=== PATIENT | male | born 2000 | race Caucasian/White ===

== ENCOUNTER 2022-09-06 10:36 | Inpatient (IN) | payer OTHER ==
[2022-09-06 11:24] VITALS: BMI 28.5
[2022-09-06] MEDS ORDERED: ONDANSETRON *ODT* 4 MG TABLET SL PRN (12:01)
[2022-09-06] MEDS ORDERED: IBUPROFEN 600 MG TABLET (FP) PO PRN (12:01)
[2022-09-06] MEDS ORDERED: NALOXONE HCL (KLOXXADO) 8 MG SPRAY NS PRN (12:01)
[2022-09-06] MEDS ORDERED: IBUPROFEN 400 MG TABLET (FP) PO PRN (12:01)
[2022-09-06] MEDS ORDERED: MAG HYDROX/AL HYDROX/SIMETH 30 ML UNIT-DOSE CUP PO PRN (12:01)
[2022-09-06] MEDS ORDERED: LOPERAMIDE HCL 2 MG CAPSULE PO PRN (12:01)
[2022-09-06] MEDS ORDERED: DICYCLOMINE HCL 10 MG CAPSULE PO PRN (12:01)
[2022-09-06] MEDS ORDERED: NALOXONE HCL 0.4 MG/ML VIAL IM PRN (12:01)
[2022-09-06] MEDS ORDERED: BISMUTH SUBSALICYLATE 262 MG/15 ML BTL PO PRN (12:01)
[2022-09-06] MEDS ORDERED: NICOTINE 10 MG CARTRIDGE (INHALER) IH PRN (12:01)
[2022-09-06] MEDS ORDERED: methaDONE HCL 10 MG TABLET (FOR DETOX USE ONLY) PO ONE (12:01)
[2022-09-06] MEDS ORDERED: ACETAMINOPHEN 325 MG TABLET (FP) PO PRN (12:01)
[2022-09-06] MEDS ORDERED: BENZOCAINE/MENTHOL (CHLORASEPTIC ) LOZENGE MM PRN (12:01)
[2022-09-06] MEDS ORDERED: BENZONATATE 200 MG CAPSULE PO PRN (12:01)
[2022-09-06] MEDS ORDERED: guaiFENesin 600 MG TABLET.ER (FP) PO PRN (12:01)
[2022-09-06] MEDS ORDERED: MAGNESIUM HYDROX 2400MG/30ML ORAL SUSPENSION 30 ML CUP PO PRN (12:01)
[2022-09-06] MEDS ORDERED: POLYETHYLENE GLYCOL (HEALTHYLAX) 3350 17 GM PACKET PO PRN (12:01)
[2022-09-06] MEDS ORDERED: COLLOIDAL OATMEAL 1 BAR EACH TP PRN (12:08)
[2022-09-06] MEDS ORDERED: AMMONIUM LACTATE 12% LOTION 225 GM BOTTLE TP PRN (12:08)
[2022-09-06] MEDS ORDERED: NICOTINE POLACRILEX 2 MG GUM BUC PRN (12:17)
[2022-09-06] MEDS ORDERED: methaDONE HCL 10 MG TABLET (FOR DETOX USE ONLY) ONE (12:44)
[2022-09-06] MEDS: BACITRACIN 0.9 GM PACKET TP SCH ×2 (12:53→22:44)
[2022-09-06] MEDS: SULFAMETHOXAZOLE/TRIMETHOPRIM 800MG/160MG D.S. TABLET PO SCH ×2 (14:38→22:44)
[2022-09-06] MEDS: hydrOXYzine PAMOATE 25 MG CAPSULE (FP) PO PRN (14:48)
[2022-09-06 14:56] LABS: HEMATOCRIT 41.2 % (35.4-49); HEMOGLOBIN 14.4 GM/dL (11.7-16.9); MCH 30.9 pg (25.7-33.7); MCHC 34.9 g/dl (32.0-35.9); MEAN CELL VOLUME 88.4 fl (80-96); MEAN PLT VOLUME 9.4 fl (7.5-11.1); PLATELET COUNT 284 10^3/uL (134-434); RBC 4.66 M/mm3 (4.00-5.60); RDW 12.6 % (11.9-15.9); WHITE BLOOD COUNT 4.7 K/mm3 (4.0-10.0)
[2022-09-06 15:03] LABS: POTASSIUM 4.2 mmol/L (3.5-5.1)
[2022-09-06 15:14] LABS: ALBUMIN 3.6 g/dl (3.4-5.0); CALCIUM 9.4 mg/dL (8.5-10.1)
[2022-09-06 15:15] LABS: BLOOD UREA NITROGEN 11.6 mg/dL (7-18)
[2022-09-06 15:18] LABS: CREATININE 0.9 mg/dL (0.55-1.3)
[2022-09-06 15:19] LABS: BILIRUBIN,TOTAL 0.3 mg/dL (0.2-1); TOT PROT 7.5 g/dl (6.4-8.2)
[2022-09-06] MEDS: THIAMINE HCL 100 MG TABLET (FP) PO SCH (22:43)
[2022-09-06] MEDS: MELATONIN 5 MG TABLETS PO SCH (22:43)
[2022-09-07] MEDS: SULFAMETHOXAZOLE/TRIMETHOPRIM 800MG/160MG D.S. TABLET PO SCH ×2 (10:40→22:18)
[2022-09-07] MEDS: PRENATAL VITAMINS W/ FOLIC ACID TABLET (FP) PO SCH (10:40)
[2022-09-07] MEDS: BACITRACIN 0.9 GM PACKET TP SCH ×2 (10:40→22:18)
[2022-09-07] MEDS: METHOCARBAMOL 500 MG TABLET PO PRN (10:42)
[2022-09-07] MEDS: FLUoxetine HCL 20 MG CAPSULE PO SCH (10:42)
[2022-09-07] MEDS: cloNIDine HCL 0.1 MG TABLET PO PRN ×2 (13:02→20:37)
[2022-09-07] MEDS: hydrOXYzine PAMOATE 25 MG CAPSULE (FP) PO PRN ×2 (13:02→22:18)
[2022-09-07] MEDS: THIAMINE HCL 100 MG TABLET (FP) PO SCH (22:18)
[2022-09-07] MEDS: MELATONIN 5 MG TABLETS PO SCH (22:18)
[2022-09-08] MEDS: METHOCARBAMOL 500 MG TABLET PO PRN (06:01)
[2022-09-08] MEDS: hydrOXYzine PAMOATE 25 MG CAPSULE (FP) PO PRN ×2 (06:01→17:33)
[2022-09-08] MEDS ORDERED: methaDONE HCL 10 MG TABLET (FOR DETOX USE ONLY) PO ONE (10:00)
[2022-09-08] MEDS: FLUoxetine HCL 20 MG CAPSULE PO SCH (10:10)
[2022-09-08] MEDS: PRENATAL VITAMINS W/ FOLIC ACID TABLET (FP) PO SCH (10:10)
[2022-09-08] MEDS: SULFAMETHOXAZOLE/TRIMETHOPRIM 800MG/160MG D.S. TABLET PO SCH ×2 (10:10→22:13)
[2022-09-08] MEDS: BACITRACIN 0.9 GM PACKET TP SCH ×2 (11:07→22:13)
[2022-09-08] MEDS: THIAMINE HCL 100 MG TABLET (FP) PO SCH (22:13)
[2022-09-08] MEDS: MELATONIN 5 MG TABLETS PO SCH (22:13)
[2022-09-09] MEDS: SULFAMETHOXAZOLE/TRIMETHOPRIM 800MG/160MG D.S. TABLET PO SCH ×2 (10:15→22:21)
[2022-09-09] MEDS: FLUoxetine HCL 20 MG CAPSULE PO SCH (10:15)
[2022-09-09] MEDS: METHOCARBAMOL 500 MG TABLET PO PRN ×2 (10:16→19:46)
[2022-09-09] MEDS: PRENATAL VITAMINS W/ FOLIC ACID TABLET (FP) PO SCH (10:16)
[2022-09-09] MEDS: BACITRACIN 0.9 GM PACKET TP SCH ×2 (10:16→22:21)
[2022-09-09] MEDS: hydrOXYzine PAMOATE 25 MG CAPSULE (FP) PO PRN ×2 (10:16→19:46)
[2022-09-09] MEDS: THIAMINE HCL 100 MG TABLET (FP) PO SCH (22:21)
[2022-09-09] MEDS: MELATONIN 5 MG TABLETS PO SCH (22:21)
[2022-09-10 06:20] VITALS: RESP 16
[2022-09-10 09:34] VITALS: BP 101/65; PULSE 85; TEMP 97.7
[2022-09-10] MEDS ORDERED: methaDONE HCL 10 MG TABLET (FOR DETOX USE ONLY) PO ONE (10:00)
[2022-09-10] MEDS: BACITRACIN 0.9 GM PACKET TP SCH (10:05)
[2022-09-10] MEDS: PRENATAL VITAMINS W/ FOLIC ACID TABLET (FP) PO SCH (10:06)
[2022-09-10] MEDS: FLUoxetine HCL 20 MG CAPSULE PO SCH (10:06)
== END 2022-09-10 11:15 | disposition home or self-care (01) | DRG 773 ==
LOC: YASAS 10:36 → Y3N 12:27
PROVIDERS: ADMIT Allergy & Immunology; ATTEND Surgery
PROC: HZ2ZZZZ Detoxification Services for Substance Abuse Treatment (ICD-10-PCS; principal; 2022-09-06)
DX: F11.23 Opioid dependence with withdrawal (principal); F17.210 Nicotine dependence, cigarettes, uncomplicated; F41.8 Other specified anxiety disorders; G47.00 Insomnia, unspecified; R73.9 Hyperglycemia, unspecified; R74.8 Abnormal levels of other serum enzymes; Z86.59 Personal history of other mental and behavioral disorders; T25.011 Burn of unspecified degree of right ankle; X10.0XXD Contact with hot drinks, subsequent encounter
CPT/HCPCS: 36415; 80053; 85027; 86780; 87811; C9803-CS; U0003; U0005